=== PATIENT | male | born 1970 | race Caucasian/White ===

== ENCOUNTER 2019-10-06 21:46 | Emergency (ER) | payer OTHER ==
[~2019-10-06] VITALS: Ht 182.9 cm; Wt 108.0 kg
[2019-10-06] MEDS ORDERED: MIRTAZAPINE7.5 MG PO (22:31)
[2019-10-06] MEDS ORDERED: DILAUDID1 MG/1 M1 PO (22:31)
[2019-10-06] MEDS ORDERED: ASA81BEC PO (22:31)
[2019-10-06] MEDS ORDERED: PHENERGAN 25 MG25 MG PO (22:31)
[2019-10-06] MEDS ORDERED: CARVEDILOL25 MG PO (22:32)
[2019-10-06] MEDS ORDERED: SPIRONOLACTONE1 GM PO (22:32)
[2019-10-06] MEDS ORDERED: OMEPRAZOLE40 MG PO (22:32)
[2019-10-06] MEDS ORDERED: ATIVAN1 M1 PO (22:32)
[2019-10-06] MEDS ORDERED: RANEXA500 MG PO (22:32)
[2019-10-06] MEDS ORDERED: MELATONIN5 MG SUBLING (22:33)
[2019-10-06] MEDS ORDERED: BUTORPHANOLNS PO (22:33)
[2019-10-06] MEDS ORDERED: KLOR-CON M2020 MEQ PO (22:33)
[2019-10-06] MEDS ORDERED: BUDESONIDE EC3 MG PO (22:33)
[2019-10-06] MEDS ORDERED: ABILIFY15 MG PO (22:33)
[2019-10-06] MEDS ORDERED: PAXIL40 MG PO (22:33)
[2019-10-06] MEDS ORDERED: COLACE100 MG PO (22:34)
[2019-10-06] MEDS ORDERED: XARELTO20 MG PO (22:34)
[2019-10-06] MEDS ORDERED: VITAMIN D21250 MC1 PO (22:34)
[2019-10-06] MEDS ORDERED: FLONASE 0.05%50 MCG NARES (22:34)
[2019-10-06] MEDS ORDERED: EPIPEN0.3 MG/0.1 IM (22:34)
[2019-10-06] MEDS ORDERED: BRILINTA90 MG PO (22:35)
[2019-10-06] MEDS ORDERED: VITAMIN B12-FO1 EAC1 PO (22:35)
[2019-10-06] MEDS ORDERED: FOLIC ACID1 MG PO (22:35)
[2019-10-06 22:45] LABS: ABSOLUTE BASOPHILS 0.1 thou/uL (0.0-0.2); ABSOLUTE EOSINOPHILS 0.3 thou/uL (0.0-0.7); ABSOLUTE LYMPHOCYTES 2.2 thou/uL (0.8-5.3); ABSOLUTE NEUTROPHILS 5.1 thou/uL (1.6-8.1); BASOPHILS 0.6 %; EOSINOPHILS 3.3 %; HEMATOCRIT 39.2 % (42.0-52.0); HEMOGLOBIN 13.1 gm/dL (14.0-18.0); LYMPHOCYTES 25.5 %; MCHC 33.5 g/dL (28.0-37.0); MCV 77.5 fL (80.0-100.0); MONOCYTES 11.9 %; MPV 9.2 fl. (7.2-11.1); NUCLEATED RBCS 0 /100WBC; PLATELET COUNT* 187 thou/uL (150-400); POLYS 58.7 %; RBC 5.05 mil/uL (4.50-6.00); RDW-CV 17.1 % (10.5-14.5); WBC 8.7 thou/uL (4.0-11.0)
[2019-10-06 22:50] LABS: CREATININE 1.2 mg/dL (0.6-1.3); POTASSIUM 3.4 mmol/L (3.5-5.1)
[2019-10-06 22:52] LABS: APTT 28.9 Seconds (25.0-31.3); INR 1.1; PROTIME 10.8 Seconds (9.20-11.50)
[2019-10-06 23:00] LABS: ALBUMIN 3.5 g/dL (3.4-5.0); TOTAL BILIRUBIN 0.4 mg/dL (<0.1-1.0)
[2019-10-07 01:33] VITALS: BP 140/85
--- NOTE | 2019-10-07 09:13 | EKG ---
[place] [address] ELECTROCARDIOGRAM REPORT Name: THANIA HERNDON Room: 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: : 1970 Requested By: Buffy Myles Order Number: [id number] MD: Virgil Alexis Measurements Intervals [place] Rate: 81 P: 41 [place]: 142 QRS: 268 QRSD: 96 T: 37 QT: 399 QTc: 464 Interpretive Statements Sinus rhythm baseline wander Left atrial enlargement Low voltage, extremity leads Abnormal R-wave progression, late transition Consider inferior infarct Abnormal lateral Q waves No previous ECG available for comparison Electronically Signed On 10-07-2019 9:12:07 CDT by Virgil Alexis [email or web address] <ELECTRONICALLY SIGNED> By: Virgil Alexis MD, FACC 10/07/19 0912 2149 2149 Virgil Alexis MD, [facility] /EPI
== END 2019-10-07 01:33 | disposition left against medical advice (07) ==
LOC: M.ERS 21:46
PROVIDERS: Personal Emergency Response Attendant
DX: I25.708 Atherosclerosis of coronary artery bypass graft(s), unspecified, with other forms of angina pectoris (principal); I11.0 Hypertensive heart disease with heart failure; I50.9 Heart failure, unspecified; E78.5 Hyperlipidemia, unspecified; Z90.49 Acquired absence of other specified parts of digestive tract; Z95.5 Presence of coronary angioplasty implant and graft; Z91.041 Radiographic dye allergy status; Z88.6 Allergy status to analgesic agent; Z88.8 Allergy status to other drugs, medicaments and biological substances

== ENCOUNTER 2019-11-02 23:50 | Emergency (ER) | payer OTHER ==
[~2019-11-02] VITALS: Ht 182.9 cm; Wt 105.7 kg
[~2019-11-02 23:50] MED LIST: ABILIFY15 MG PO; ASA81BEC PO; ATIVAN1 M1 PO; BRILINTA90 MG PO; BUDESONIDE EC3 MG PO; BUTORPHANOLNS PO; CARVEDILOL25 MG PO; COLACE100 MG PO; DILAUDID1 MG/1 M1 PO; EPIPEN0.3 MG/0.1 IM; FLONASE 0.05%50 MCG NARES; FOLIC ACID1 MG PO; KLOR-CON M2020 MEQ PO; MELATONIN5 MG SUBLING; MIRTAZAPINE7.5 MG PO; OMEPRAZOLE40 MG PO; PAXIL40 MG PO; PHENERGAN 25 MG25 MG PO; RANEXA500 MG PO; SPIRONOLACTONE1 GM PO; VITAMIN B12-FO1 EAC1 PO; VITAMIN D21250 MC1 PO; XARELTO20 MG PO
[2019-11-03 00:31] LABS: ABSOLUTE BASOPHILS 0.2 thou/uL (0.0-0.2); ABSOLUTE EOSINOPHILS 0.2 thou/uL (0.0-0.7); ABSOLUTE LYMPHOCYTES 2.8 thou/uL (0.8-5.3); ABSOLUTE MONOCYTES 0.8 thou/uL (0.0-1.2); BASOPHILS 2.1 %; EOSINOPHILS 2.7 %; HEMOGLOBIN 13.9 gm/dL (14.0-18.0); LYMPHOCYTES 30.9 %; MCH 26.4 pg (26.0-34.0); MCV 77.7 fL (80.0-100.0); MONOCYTES 8.9 %; MPV 8.9 fl. (7.2-11.1); NUCLEATED RBCS 0 /100WBC; PLATELET COUNT* 214 thou/uL (150-400); POLYS 55.4 %; RBC 5.27 mil/uL (4.50-6.00); RDW-CV 14.9 % (10.5-14.5)
[2019-11-03 00:37] LABS: CALCIUM 8.5 mg/dL (8.5-10.1); CREATININE 1.3 mg/dL (0.6-1.3); POTASSIUM 3.6 mmol/L (3.5-5.1)
[2019-11-03 00:40] LABS: APTT 38.8 Seconds (25.0-31.3); INR 1.4; PROTIME 13.8 Seconds (9.20-11.50)
[2019-11-03 00:55] LABS: ALBUMIN 3.7 g/dL (3.4-5.0); TOTAL BILIRUBIN 0.3 mg/dL (<0.1-1.0); TOTAL PROTEIN 7.4 g/dL (6.4-8.2)
[2019-11-03 01:56] VITALS: BP 144/95
--- NOTE | 2019-11-03 12:56 | EKG ---
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: : 1970 Requested By: Buffy Myles Order Number: [id number] MD: Mark Cardona Measurements Intervals [place] Rate: 77 P: 51 MD: 137 QRS: -73 QRSD: 111 T: 41 QT: 400 QTc: 453 Interpretive Statements Sinus rhythm Probable left atrial enlargement LAD, consider left anterior fascicular block Low voltage, extremity leads Abnormal R-wave progression, late transition Baseline wander in lead(s) V4 Compared to ECG 10/06/2019 21:49:35 Myocardial infarct finding no longer present Q waves no longer present Electronically Signed On 11-03-2019 12:54:41 CDT by Mark Cardona [email or web address] <ELECTRONICALLY SIGNED> By: Mark Cardona MD, FAC 11/03/19 1254 2353 2353 Mark Cardona MD, [facility] /EPI
== END 2019-11-03 01:59 | disposition short-term general hospital (02) ==
LOC: M.ERS 23:50
PROVIDERS: Personal Emergency Response Attendant
DX: I25.10 Atherosclerotic heart disease of native coronary artery without angina pectoris (principal); D68.51 Activated protein C resistance; I11.0 Hypertensive heart disease with heart failure; I50.9 Heart failure, unspecified; E78.5 Hyperlipidemia, unspecified; Z95.5 Presence of coronary angioplasty implant and graft; Z90.49 Acquired absence of other specified parts of digestive tract; Z91.041 Radiographic dye allergy status; Z88.6 Allergy status to analgesic agent; Z88.8 Allergy status to other drugs, medicaments and biological substances

== ENCOUNTER 2019-11-16 16:55 | Emergency (ER) | payer OTHER ==
[~2019-11-16] VITALS: Ht 182.9 cm; Wt 108.0 kg
[2019-11-16 17:34] LABS: HEMATOCRIT 41.4 % (42.0-52.0); HEMOGLOBIN 13.6 gm/dL (14.0-18.0); MCH 26.2 pg (26.0-34.0); MCV 79.5 fL (80.0-100.0); MPV 8.5 fl. (7.2-11.1); NUCLEATED RBCS 0 /100WBC; PLATELET COUNT* 185 thou/uL (150-400); RDW-CV 15.5 % (10.5-14.5); WBC 8.2 thou/uL (4.0-11.0)
[2019-11-16 17:42] LABS: APTT 27.3 Seconds (25.0-31.3); PROTIME 10.6 Seconds (9.20-11.50)
[2019-11-16 17:55] LABS: CALCIUM 8.3 mg/dL (8.5-10.1); CREATININE 1.3 mg/dL (0.6-1.3); POTASSIUM 3.6 mmol/L (3.5-5.1)
[2019-11-16 18:06] LABS: ABSOLUTE EOSINOPHILS 0.3 thou/uL (0.0-0.7); ABSOLUTE LYMPHOCYTES 2.6 thou/uL (0.8-5.3); ABSOLUTE NEUTROPHILS 4.3 thou/uL (1.6-8.1); ALBUMIN 3.5 g/dL (3.4-5.0); ANISOCYTOSIS 1+; PLATELET ESTIMATE ADEQUATE; POIKILOCYTOSIS Occasional; POLYCHROMASIA Occasional; TOTAL BILIRUBIN 0.4 mg/dL (<0.1-1.0); TOTAL PROTEIN 7.3 g/dL (6.4-8.2)
[2019-11-16 19:00] VITALS: BP 130/91
--- NOTE | 2019-11-17 08:47 | EKG ---
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1970 Requested By: Buffy Myles Order Number: [id number] MD: Mark Cardona Measurements Intervals [place] Rate: 100 P: 40 [place]: 134 QRS: -74 QRSD: 103 T: 32 QT: 350 QTc: 452 Interpretive Statements Sinus tachycardia Ventricular premature complex Possible left atrial enlargement LAD, consider left anterior fascicular block Low voltage, extremity leads Compared to ECG 11/02/2019 23:53:56 Ventricular premature complex(es) now present Sinus rhythm no longer present Electronically Signed On 11-17-2019 8:44:57 CDT by Mark Cardona [email or web address] <ELECTRONICALLY SIGNED> By: Mark Cardona MD, FACC 11/17/19 0844 1656 1656 Mark Cardona MD, FAC /EPI
== END 2019-11-16 19:08 | disposition short-term general hospital (02) ==
LOC: M.ERS 16:55
PROVIDERS: Personal Emergency Response Attendant
DX: I20.9 Angina pectoris, unspecified (principal); R07.89 Other chest pain; G89.29 Other chronic pain; I11.0 Hypertensive heart disease with heart failure; I50.9 Heart failure, unspecified; E78.5 Hyperlipidemia, unspecified; Z95.5 Presence of coronary angioplasty implant and graft; Z90.49 Acquired absence of other specified parts of digestive tract; Z91.041 Radiographic dye allergy status; Z88.6 Allergy status to analgesic agent; Z88.8 Allergy status to other drugs, medicaments and biological substances

== ENCOUNTER 2019-12-03 14:37 | Emergency (ER) | payer OTHER ==
[~2019-12-03] VITALS: Ht 182.9 cm; Wt 108.0 kg
[2019-12-03] MEDS ORDERED: METOLAZONE 2.52.5 MG PO (14:52)
[2019-12-03 15:01] LABS: ABSOLUTE BASOPHILS 0.1 thou/uL (0.0-0.2); ABSOLUTE EOSINOPHILS 0.3 thou/uL (0.0-0.7); ABSOLUTE LYMPHOCYTES 1.9 thou/uL (0.8-5.3); ABSOLUTE MONOCYTES 0.8 thou/uL (0.0-1.2); ABSOLUTE NEUTROPHILS 3.8 thou/uL (1.6-8.1); BASOPHILS 1.7 %; HEMATOCRIT 41.3 % (42.0-52.0); HEMOGLOBIN 13.7 gm/dL (14.0-18.0); LYMPHOCYTES 27.3 %; MCH 26.2 pg (26.0-34.0); MCHC 33.3 g/dL (28.0-37.0); MCV 78.8 fL (80.0-100.0); MONOCYTES 12.2 %; MPV 8.4 fl. (7.2-11.1); NUCLEATED RBCS 0 /100WBC; PLATELET COUNT* 201 thou/uL (150-400); POLYS 54.8 %; RBC 5.23 mil/uL (4.50-6.00); RDW-CV 15.3 % (10.5-14.5); WBC 6.9 thou/uL (4.0-11.0)
[2019-12-03 15:09] LABS: APTT 31.6 Seconds (25.0-31.3); INR 1.1; PROTIME 11.4 Seconds (9.20-11.50)
[2019-12-03 15:11] LABS: CALCIUM 8.5 mg/dL (8.5-10.1); CREATININE 1.3 mg/dL (0.6-1.3); POTASSIUM 4.1 mmol/L (3.5-5.1)
[2019-12-03 15:22] LABS: ALBUMIN 3.6 g/dL (3.4-5.0); CK-MB MASS 3.7 ng/mL (<0.5-3.6); MAGNESIUM 1.8 mg/dL (1.8-2.4); TOTAL BILIRUBIN 0.5 mg/dL (<0.1-1.0); TOTAL PROTEIN 7.3 g/dL (6.4-8.2)
[2019-12-03 15:52] VITALS: BP 123/80
--- NOTE | 2019-12-05 11:17 | EKG ---
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 : 1970 Requested By: Dayne Abel Order Number: [id number] MD: Virgil Alexis Measurements Intervals [place] Rate: 84 P: 30 [place]: 131 QRS: -74 QRSD: 111 T: 41 QT: 394 QTc: 466 Interpretive Statements Sinus rhythm Probable left atrial enlargement LAD, consider left anterior fascicular block Low voltage, extremity leads Consider anterior infarct Compared to ECG 11/16/2019 16:56:40 Sinus tachycardia no longer present Ventricular premature complex(es) no longer present Electronically Signed On 12-05-2019 11:16:45 CDT by Virgil Alexis [email or web address] <ELECTRONICALLY SIGNED> By: Virgil Alexis MD, FACC 12/05/19 1116 1442 1442 Virgil Alexis MD, [facility] /EPI
== END 2019-12-03 15:54 | disposition home or self-care (01) ==
LOC: M.ERS 14:37
PROVIDERS: Family Medicine
DX: R07.89 Other chest pain (principal); I11.0 Hypertensive heart disease with heart failure; I50.9 Heart failure, unspecified; E78.5 Hyperlipidemia, unspecified; Z76.5 Malingerer [conscious simulation]; Z91.041 Radiographic dye allergy status; Z88.8 Allergy status to other drugs, medicaments and biological substances; Z79.82 Long term (current) use of aspirin; Z79.899 Other long term (current) drug therapy; Z90.49 Acquired absence of other specified parts of digestive tract